=== PATIENT | male | born 1955 | race Caucasian/White ===

== ENCOUNTER 2022-05-05 00:15 | Emergency (ER) | payer MEDICARE ==
[2022-05-05 00:42] VITALS: BP 147/100; PULSE 78; RESP 14; TEMP 98.4
--- NOTE | 2022-05-05 01:19 | ED ---
Lower Extremity Injury HPI - General Chief Complaint: Extremity Injury, Lower Stated Complaint: Leg Swelling Time Seen by Provider: 05/05/22 01:00 Source: patient, RN notes reviewed Mode of arrival: ambulatory Limitations: no limitations - History of Present Illness Initial Comments: Patient is a 66-year-old male presenting to the emergency room with concerns of swelling to his right lower extremity. He reports that he fell and injured his right leg in the thigh region approximately 1 week ago. He had his extremity evaluated at that time in which she had a dopplerable that was negative for DVT. He denies having any imaging of his ankle or tibia-fibula including x-rays. He reports that he fell onto his ankle and rolled it however u ntil yesterday he did not have any swelling or notice any significant bruising in his ankle which is present now. He does admit that over the last 2 days he has been much more active and on his feet that he was after the initial injury. He denies any new injury. He denies any range of motion impairment, weakness, numbness, tingling, chest pain, shortness of breath, fevers or chills. He denies any other complaints or concerns. He has a history of melanoma in addition to his recent falls and is not on any medications on a regular basis. - Related Data Allergies Allergy/AdvReac Type Severity Reaction Status Date / Time No Known Allergies Allergy Verified 05/05/22 01:11 Review of Systems ROS Statement: Those systems with pertinent positive or pertinent negative responses have been documented in the HPI. ROS Other: All systems not noted in ROS Statement are negative. Past Medical History Additional Past Medical History / Comment(s): meloma on left hand Additional Past Surgical History / Comment(s): skin cancer tumor surgery General Exam Limitations: no limitations General appearance: alert, in no apparent distress Head exam: Present: atraumatic, normocephalic, normal inspection Eye exam: Present: normal appearance, PERRL. Absent: scleral icterus, conjunctival injection, periorbital swelling ENT exam: Present: normal exam, mucous membranes moist Neck exam: Present: normal inspection, full ROM Respiratory exam: Absent: respiratory distress, accessory muscle use Cardiovascular Exam: Present: regular rate GI/Abdominal exam: Absent: distended Right Knee exam: Present: full ROM, tenderness, swelling Lower Leg exam: Present: full ROM, tenderness, swelling. Absent: erythema, palpable cord, Homans' sign Ankle exam: Present: full ROM, tenderness, swelling, ecchymosis. Absent: laceration, crepitus, dislocation, erythema Foot/Toe exam: Present: full ROM, swelling. Absent: tenderness Neurovascular tendon exam: Absent: no vascular compromise Gait: observed and limited by pain Back exam: Present: normal inspection Neurological exam: Present: alert, oriented X3, CN II-XII intact Psychiatric exam: Present: normal affect, normal mood Skin exam: Present: warm, dry, intact, normal color. Absent: rash Course Vital Signs 05/05/22 00:37 Temperature 98.4 F Pulse Rate 78 Respiratory 14 Rate Blood Pressure 147/100 O2 Sat by Pulse 98 Oximetry Medical Decision Making - Medical Decision Making Was pt. sent in by a medical professional or institution (, PA, [employer], urgent care, hospital, or detention...) When possible be specific @ -No Did you speak to anyone other than the patient for history (EMS, parent, family, police, friend...)? What history was obtained from this source @ -No Did you review nursing and triage notes (agree or disagree)? Why? @ -I reviewed and agree with nursing and triage notes Were old charts reviewed (outside hosp., previous admission, EMS record, old EKG, old radiological studies, urgent care reports/EKG's, detention records)? Report findings @ -Venous Doppler report 04/26/2022 reviewed Differential Diagnosis (chest pain, altered mental status, abdominal pain women, abdominal pain men, vaginal bleeding, weakness, fever, dyspnea, syncope, headache, dizziness, GI bleed, back pain, seizure, CVA, palpatations, mental health, musculoskeletal)? @ -Differential Musculoskeletal Muscular strain, contusion, ligament sprain, fracture, arthritis, septic art hritis, bursitis, cellulitis, muscle spasm, nerve compression, DVT, arterial occlusion, herpes zoster, electrolyte abnormality, tumor.... This is not meant to be in all inclusive list EKG interpreted by me (3pts min.). @ -None done X-rays interpreted by me (1pt min.). @ -X-ray right tib-fib: No fracture or dislocation. X-ray right ankle: No fracture or dislocation. Plantar spur. No soft tissue swelling. CT interpreted by me (1pt min.). @ -None done U/S interpreted by me (1pt. min.). @ -Ultrasound Doppler right lower extremity completed not interact her interpreted by me. Interpretation per radiologist negative for DVT. What testing was considered but not performed or refused? (CT, X-rays, U/S, labs)? Why? @ -None What meds were considered but not given or refused? Why? @ -None Did you discuss the management of the patient with other professionals (professionals i.e. , PA, [employer], lab, RT, psych nurse, social contact worker, tugboat captain, teacher, special police officer, egg caser)? Give summary @ -No Was smoking cessation discussed for >3mins.? @ -No Was critical care preformed (if so, how long)? @ -No Were there social determinants of health that impacted care today? How? (Homelessness, low income, unemployed, alcoholism, drug addiction, t ransportation, low edu. Level, literacy, decrease access to med. care, detention, rehab)? @ -No Was there de-escalation of care discussed even if they declined (Discuss DNR or withdrawal of care, Hospice)? DNR status @ -No What co-morbidities impacted this encounter? (DM, HTN, Smoking, COPD, CAD, Cancer, CVA, ARF, Chemo, Hep., AIDS, mental health diagnosis, sleep apnea, morbid obesity)? @ -None Was patient admitted / discharged? Hospital course, mention meds given and route, prescriptions, significant lab abnormalities, going to OR and other pertinent info. @ -66-year-old male presenting to the emergency room with right lower extremity pain and swelling ongoing approximately 1 week after fall. No new trauma. Original Doppler had time of the head negative for DVT. New swelling location will repeat Doppler along with x-ray of tib-fib and foot. Patient denies any analgesic need. No indication for laboratory studies. X-ray negative for acute pathology. Doppler negative for DVT. Findings discussed with patient at length. Encouraged continued rice post fall with elevation, ice and compression. Encouraged low-salt diet as well and follow-up with patient's primary care provider. Will discharge home in stable condition with conservative therapy for right lower extremity pain and swelling. Undiagnosed new problem with uncertain prognosis? @ -No Drug Therapy requiring intensive monitoring for toxicity (Heparin, Nitro, Insulin, Cardizem)? @ -No Were any procedures done? @ -No Diagnosis/symptom? @ -Right lower extremity pain and swelling Acute, or Chronic, or Acute on Chronic? @ -Acute Uncomplicated (without systemic symptoms) or Complicated (systemic symptoms)? @ -Uncomplicated Side effects of treatment? @ -No Exacerbation, Progression, or Severe Exacerbation? @ -No Poses a threat to life or bodily function? How? (Chest pain, USA, [place], pneumonia, PE, COPD, DKA, ARF, appy, cholecystitis, CVA, Diverticulitis, Homicidal, Suicidal, threat to staff... and all critical care pts) @ -No Case discussed with Dr. Jarvis. Disposition Clinical Impression: Right leg swelling, Right leg pain Disposition: HOME SELF-CARE Condition: Stable Instructions (If sedation given, give patient instructions): Ankle Sprain (ED) Additional Instructions: Conservative management with R. I. C. E. advised. Rest joint when possible, apply ice for 20 minute increments every 2-3 hours, keep compression with Stephen wrap intact when possible. Elevate joint when possible. Utilize [id number] analgesics of ibuprofen or Tylenol as needed for pain. Please follow-up with your primary care provider. Please return to the Emergency Department if symptoms worsen or any other concerns. Is patient prescribed a controlled substance at d/c from ED?: No Referrals: Baljinder Alvarenga MD [Primary Care Provider] - 1-2 days Time of Disposition: 02:14
--- NOTE | 2022-05-05 01:55 | XR ---
EXAMINATION TYPE: XR tibia fibula RT DATE OF EXAM: 05/05/2022 COMPARISON: NONE HISTORY: Swelling and pain TECHNIQUE: 2 views FINDINGS: The tibia and fibula appear intact. No fracture seen. Ankle joint and knee joint appear int act IMPRESSION: No acute abnormality of the right tibia and fibula.
--- NOTE | 2022-05-05 01:56 | XR ---
EXAMINATION TYPE: XR foot complete RT DATE OF EXAM: 05/05/2022 COMPARISON: NONE HISTORY: Leg swelling TECHNIQUE: 3 views FINDINGS: There is plantar calcaneal spurring. Metatarsals are intact. I see no fracture or dislocati on. The toes are intact. There are no erosions. No subluxation. IMPRESSION: Calcaneal spurring. No fracture seen. No evidence of inflammatory arthritis.
--- NOTE | 2022-05-05 01:59 | US ---
EXAMINATION TYPE: US venous doppler duplex LE RT DATE OF EXAM: 05/05/2022 1:24 AM COMPARISON: 04/26/22 CLINICAL HISTORY: pain swelling. Right leg swelling. Pt states the swelling in his foot/ankle is wors e than last week SIDE PERFORMED: Right TECHNIQUE: The lower extremity deep venous system is examined utilizing real time linear array sonog velvet with graded compression, doppler sonography and color-flow sonography. VESSELS IMAGED: Common Femoral Vein Deep Femoral Vein Greater Saphenous Vein * Femoral Vein Popliteal Vein Small Saphenous Vein * Proximal Calf Veins (* superficial vessels) Right Leg: Negative for DVT IMPRESSION: No evidence of deep vein thrombosis in the right leg.
== END 2022-05-05 02:24 | disposition home or self-care (01) ==
LOC: EC 00:15
DX: M79.604 Pain in right leg (principal); M79.89 Other specified soft tissue disorders; W18.30XA Fall on same level, unspecified, initial encounter
CPT/HCPCS: 99284

== ENCOUNTER → 2023-01-05 | Outpatient (CLI) | payer MEDICARE ==
--- NOTE | 2023-01-05 08:10 | US ---
EXAMINATION TYPE: US prostate transrectal DATE OF EXAM: 01/05/2023 COMPARISON: NONE CLINICAL INDICATION: Male, 67 years old with history of N13.8 OTHER OBSTRUCTIVE AND REFLUX UROPATHY; This examination was performed using the transrectal probe. EXAM MEASUREMENTS: Gland Size: 4.0 x 2.9 x 4.8cm Volume: 29.0ml Predicted PSA: 3.48 Actual PSA (if available):Not available Mildly heterogeneous gland without any definite lesions seen at this time IMPRESSION: No suspicious masses. If there remains concern consider MRI prostate for a more sensitive exam for cl inically significant prostate cancer. Predicted PSA = volume x 0.12 ng/ml Calculated Volume = 0.5236 x L x W x H
== END | disposition home or self-care (01) ==
LOC: RADUSWWP 06:45
PROVIDERS: ATTEND Family Medicine
DX: N13.8 Other obstructive and reflux uropathy (principal)
CPT/HCPCS: 76872

== ENCOUNTER → 2023-05-02 | Outpatient (CLI) | payer MEDICARE ==
--- NOTE | 2023-05-02 16:25 | US ---
EXAMINATION TYPE: US abdomen limited DATE OF EXAM: 05/02/2023 COMPARISON: None CLINICAL INDICATION: Male, 67 years old with history of R19.01 RIGHT UPPER QUADRANT ABDOMINAL SWELLIN ARCENIO Rodriguez; cardiac/vascular sonographer notes: Patient feels lump x 1 month, no superficial area identified by patient, ar ea appears to be in the area of the right lobe of the liver. TECHNIQUE: Multiple sonographic images of the right upper quadrant are obtained. FINDINGS: EXAM MEASUREMENTS: Liver Length: 21.1 cm Gallbladder Wall: 0.24 cm CBD: 0.9 cm Right Kidney: 12.2 x 5.5 x 5.6 cm DIAMOND PICKER NOTES: Exam is limited due to gas. Pancreas: Visualized pancreatic neck shows no gross abnormality. Possible vague 3.6 cm hypoechoic ar ea anterior pancreatic body. Liver: Enlarged and mildly echogenic. Gallbladder: 4 mm echogenic mural based nodularity at the fundus of the gallbladder. No abnormal dist ention, wall thickening, surrounding fluid, or shadowing calculi. Evidence for sonographic Quinn's sign: No CBD: Appears dilated. Right Kidney: No hydronephrosis or masses seen IMPRESSION: 1. Possible vague 3.6 cm hypoechoic lesion anterior pancreatic body. Contrast enhanced CT to exclude a pancreatic mass. 2. Hepatomegaly at 21.1 cm with suspected mild hepatic steatosis. 3. A 4 mm polyp along the fundus of the gallbladder. Six-month follow-up gallbladder ultrasound to re assess. No gallstones. 4. Bile duct dilated at 9 mm. This may be chronic for the patient. Correlate with alkaline phosphatas e and bilirubin levels to exclude biliary obstruction.
== END | disposition home or self-care (01) ==
LOC: RADUSWWP 07:22
PROVIDERS: ATTEND Family Medicine
DX: R19.01 Right upper quadrant abdominal swelling, mass and lump (principal); R16.0 Hepatomegaly, not elsewhere classified
CPT/HCPCS: 76705

== ENCOUNTER → 2023-05-05 | Outpatient (CLI) | payer MEDICARE ==
[2023-05-05 14:52] LABS: African American GFR (CKD) >90 (>60 ml/min/1.73 sqM); Blood Urea Nitrogen 25 mg/dL (9-20); Non-African American GFR(CKD) 88 (>60 ml/min/1.73 sqM)
--- NOTE | 2023-05-05 20:26 | CT ---
EXAMINATION TYPE: CT pancreas biphase CT DLP: 1599.1 mGycm, Automated exposure control for dose reduction was used. DATE OF EXAM: 05/05/2023 3:23 PM COMPARISON: Ultrasound 05/02/2023. CLINICAL INDICATION:Male, 67 years old with history of K86.89 OTHER SPECIFIED DISEASES OF PANCREAS; P ANCREATITIS TECHNIQUE: Axial CT pancreas biphase;Sagittal and coronal reformats were created on a separate works tation. Contrast used:85 mL of Isovue 370 with IV Contrast, (none if empty) Oral contrast used: (none if empty) FINDINGS: LOWER CHEST: Unremarkable ABDOMEN LIVER: Unremarkable GALLBLADDER AND BILE DUCTS: Unremarkable. PANCREAS: No evidence for mass. No ductal dilation. No adjacent fat stranding changes.. SPLEEN: Unremarkable. ADRENAL GLANDS: Left adrenal nodule measuring 13 mm. KIDNEYS AND URETERS: No evidence of hydronephrosis or renal calculus. The ureters are unremarkable. STOMACH AND BOWEL: No evidence of bowel obstruction. The appendix is partially visualized and normal. PERITONEUM/RETROPERITONEUM: No evidence of pneumoperitoneum or free fluid. VASCULATURE: No evidence of aortic aneurysm. MUSCULOSKELETAL: No acute osseous abnormalities LYMPH NODES: No gross evidence for lymphadenopathy. SOFT TISSUE/ABDOMINAL WALL: Unremarkable IMPRESSION: 1. No evidence for pancreatitis. No evidence for pancreatic mass. 2. No evidence for acute process. 3. Left adrenal nodule. 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
== END | disposition home or self-care (01) ==
LOC: RADCTMAIN 14:15
PROVIDERS: ATTEND Family Medicine
DX: E27.8 Other specified disorders of adrenal gland (principal); K86.89 Other specified diseases of pancreas
CPT/HCPCS: 82565; 84520; 36415; 74160; Q9967

== ENCOUNTER 2024-07-24 12:53 | Emergency (ER) | payer MEDICARE ==
[2024-07-24 13:19] VITALS: BP 123/83; PULSE 80; RESP 18; TEMP 97.8
--- NOTE | 2024-07-24 13:20 | ED ---
General Adult HPI - General Stated complaint: Fall, back injury Time Seen by Provider: 07/24/24 13:06 Source: patient, RN notes reviewed Mode of arrival: ambulatory Limitations: no limitations - History of Present Illness Initial comments: 68-year-old male presents emergency department chief complaint of trip and fall. 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 Hook He Is Attempted to Take Some Tylenol and Motrin without Relief of Symptoms His Pain in His Right Ribs Worse with Deep Inspiration and Movement Denies Any Lower Extremity Injuries No Head Injury No Loss Conscious. - Related Data Previous Rx's Medication Instructions Recorded Docusate [Colace] 100 mg PO DAILY #14 capsule 07/24/24 HYDROcodone/APAP 7.5-325MG [Aroda 1 tab PO Q6HR PRN 3 Days #12 tab 07/24/24 7.5-325] Allergies Allergy/AdvReac Type Severity Reaction Status Date / Time No Known Allergies Allergy Verified 05/05/22 01:11 Review of Systems ROS Statement: Those systems with pertinent positive or pertinent negative responses have been documented in the HPI. ROS Other: All systems not noted in ROS Statement are negative. Past Medical History Additional Past Medical History / Comment(s): meloma on left hand Additional Past Surgical History / Comment(s): skin cancer tumor surgery General Exam Limitations: no limitations General appearance: alert, in no apparent distress Head exam: Present: atraumatic, normocephalic, normal inspection Eye exam: Present: normal appearance, PERRL, EOMI. Absent: scleral icterus, conjunctival injection, periorbital swelling ENT exam: Present: normal exam, normal oropharynx, mucous membranes moist Neck exam: Present: normal inspection, full ROM. Absent: tenderness, meningismus, lymphadenopathy Respiratory exam: Present: normal lung sounds bilaterally, chest wall tenderness. Absent: respiratory distress, wheezes, rales, rhonchi, stridor Cardiovascular Exam: Present: regular rate, normal rhythm, normal heart sounds. Absent: systolic murmur, diastolic murmur, rubs, gallop, clicks GI/Abdominal exam: Present: soft, normal bowel sounds. Absent: distended, ten derness, guarding, rebound, rigid Extremities exam: Present: normal inspection, full ROM, normal capillary refill. Absent: tenderness, pedal edema, joint swelling, calf tenderness Back exam: Present: full ROM, tenderness, paraspinal tenderness, vertebral tenderness Neurological exam: Present: reflexes normal. Absent: motor sensory deficit Skin exam: Present: warm, dry, intact, normal color. Absent: rash Course Vital Signs 07/24/24 13:15 Temperature 97.8 F Pulse Rate 80 Respiratory 18 Rate Blood Pressure 123/83 O2 Sat by Pulse 98 Oximetry Medical Decision Making - Medical Decision Making Was pt. sent in by a medical professional or institution (, PA, [facility], urgent care, hospital, or group home...) When possible be specific @ -No Did you speak to anyone other than the patient for history (EMS, parent, family, police, friend...)? What history was obtained from this source @ -No Did you review nursing and triage notes (agree or disagree)? Why? @ -I reviewed and agree with nursing and triage notes Were old charts reviewed (outside hosp., previous admission, EMS record, old EKG, old radiological studies, urgent care reports/EKG's, group home records)? Report findings @ -No old charts were reviewed Differential Diagnosis (chest pain, altered mental status, abdominal pain women, abdominal pain men, vaginal bleeding, weakness, fever, dyspnea, syncope, headac he, dizziness, GI bleed, back pain, seizure, CVA, palpatations, mental health, musculoskeletal)? @ -Differential Back Pain: Strain, zoster, cauda equina syndrome, epidural abscess, vertebral osteomye litis, discitis, fracture, subluxation, disc herniation, DJD, spinal stenosis, dissection, AAA, pancreatitis, peptic ulcer disease, pyelonephritis, kidney stone, this is not meant to be an all-inclusive list. EKG interpreted by me (3pts min.). @ -None X-rays interpreted by me (1pt min.). @ -X-ray lumbar spine no acute fracture multiple degenerative changes noted X-ray thoracic spine no acute fracture X-ray rib series with PA chest no acute fracture CT interpreted by me (1pt min.). @ -None done U/S interpreted by me (1pt. min.). @ -None done What testing was considered but not performed or refused? (CT, X-rays, U/S, labs)? Why? @ -None What meds were considered but not given or refused? Why? @ -None Did you discuss the management of the patient with other professionals (professionals i.e. , PA, [facility], lab, RT, psych nurse, secondary social studies teacher, childcare center administrator, teacher, lodge officer, oil field caser)? Give summary @ -No Was smoking cessation discussed for >3mins.? @ -No Was critical care preformed (if so, how long)? @ -No Were there social determinants of health that impacted care today? How? (Homelessness, low income, unemployed, alcoholism, drug addiction, transportation, low edu. Level, literacy, decrease access to med. care, shelter, rehab)? @ -No Was there de-escalation of care discussed even if they declined (Discuss DNR or withdrawal of care, Hospice)? DNR status @ -No What co-morbidities impacted this encounter? (DM, HTN, Smoking, COPD, CAD, Cancer, CVA, ARF, Chemo, Hep., AIDS, mental health diagnosis, sleep apnea, morbid obesity)? @ -None Was patient admitted / discharged? Hospital course, mention meds given and route, prescriptions, significant lab abnormalities, going to OR and other pertinent info. @ -[Discharge patient presented after a fall patient has acute exacerbation of c hronic back pain patient has no red flag symptoms. Patient is discharged in stable condition. Undiagnosed new problem with uncertain prognosis? @ -No Drug Therapy requiring intensive monitoring for toxicity (Heparin, Nitro, Insulin, Cardizem)? @ -No Were any procedures done? @ -No Diagnosis/symptom? @ -Fall, back pain, rib contusion Acute, or Chronic, or Acute on Chronic? @ -Acute Uncomplicated (without systemic symptoms) or Complicated (systemic symptoms)? @ -Uncomplicated Side effects of treatment? @ -No Exacerbation, Progression, or Severe Exacerbation? @ -No Poses a threat to life or bodily function? How? (Chest pain, USA, [place], pneumonia, PE, COPD, DKA, ARF, appy, cholecystitis, CVA, Diverticulitis, Homicidal, Suicidal, threat to staff... and all critical care pts) @ -No Disposition Clinical Impression: Fall, Back pain, Contusion of rib on right side Disposition: HOME SELF-CARE Condition: Stable Instructions (If sedation given, give patient instructions): Back Pain (ED) Additional Instructions: Please return to the Emergency Department if symptoms worsen or any other concerns. Prescriptions: Docusate [Colace] 100 mg PO DAILY #14 capsule HYDROcodone/APAP 7.5-325MG [Aroda 7.5-325] 1 tab PO Q6HR PRN 3 Days #12 tab PRN Reason: pain Is patient prescribed a controlled substance at d/c from ED?: Yes When asked, does pt state using other controlled substances?: No If prescribed controlled substance>3 days was MAPS reviewed?: Prescribed <3 Days If opioid is for acute pain is fill amount 7 days or less?: Yes If Rx opioid, was Start Talking consent form obtained?: Yes Referrals: Baljinder Alvarenga MD [Primary Care Provider] - 1-2 days Time of Disposition: 15:04
--- NOTE | 2024-07-24 13:52 | XR ---
EXAMINATION TYPE: XR ribs RT w pa chest xray 5 views, XR thoracic spine 3 views, XR lumbar spine 3V DATE OF EXAM: 07/24/2024 1:40 PM COMPARISON: None CLINICAL INDICATION: Male, 68 years old with history of fall, pain; PHH, pain FINDINGS: CHEST: Heart upper limits of normal size. Interstitial prominence especially mid and lower lungs as well as some patchy right basilar opacity. No consolidation or pleural effusion otherwise seen. Right RIBS: No displaced right rib fracture seen. Thoracic spine: 12 rib-bearing thoracic vertebral bodies. DISH in the mid and lower thoracic spine. Vertebral body he ights are preserved and alignment is maintained. Lumbar spine: Slight rotary dextroconvex curvature lumbar spine. Hypertrophic facet arthropathy mid to lower lumbar spine. Mild multilevel degenerative disc disease. Trace grade 1 retrolisthesis L2-L3 and L3-L4. Grad e 1 anterolisthesis L4-L5. Vertebral body heights are preserved. IMPRESSION: 1. Chest: Interstitial prominence may in part be chronic. Correlate to exclude mild pulmonary vascula r congestion, bronchitis, or asthma. Some more focal patchy density at the right base probably atelec tasis. 2. Right ribs: No displaced right rib fracture seen. 3. Thoracic spine: DISH mid and lower thoracic spine. No vertebral compression collapse or malalignme nt. 4. Lumbar spine: Dextroconvex scoliosis. Hypertrophic facet arthropathy mid to lower lumbar spine. Mi ld multilevel degenerative disc disease throughout. Degenerative grade 1 spondylolisthesis L2-L3, L3- L4, and L4-L5. No vertebral compression collapse. [facility], , 07/24/2024 1:50 PM
[2024-07-24] MEDS: HYDROmorphone 1 MG/ML 1 ML SYRINGE IM STA (14:05)
== END 2024-07-24 15:12 | disposition home or self-care (01) ==
LOC: EC 12:53
DX: S20.221A Contusion of right back wall of thorax, initial encounter (principal); M47.816 Spondylosis without myelopathy or radiculopathy, lumbar region; W01.0XXA Fall on same level from slipping, tripping and stumbling without subsequent striking against object, initial encounter
CPT/HCPCS: 71101; 72070; 72100; 99283; 96372; J1171